=== PATIENT | female | born 1945 | race Caucasian/White ===

== ENCOUNTER 2018-07-15 08:21 | Outpatient (CLI) | payer MEDICARE ==
--- NOTE | 2018-07-15 09:42 | BD ---
DEXA BONE DENSITY: HISTORY: A 73-year-old female. Postmenopausal female. Screening study. COMPARISON: 10/01/2016. FINDINGS: Lumbar Spine: BMD (g/cm2) L1 1.102 T-Score: 1.0, 3.1 L2 1.170 T-Score: 1.3, 3.6 L3 1.225 T-Score: 1.3, 3.7 L4 1.205 T-Score: 1.3, 3.8 L1-L4 1.177 T-Score: 1.2, 3.5 10/01/2016: 1.183, 1.2. BMD CHANGE VERSUS BASELINE: -0.5%. BMD CHANGE VERSUS PREVIOUS: -0.5%. Femoral Neck: 0.635 T-Score: -1.9, 0.1 Total Femur: 0.652 T-Score: -2.4, 0.7 10/01/2016: 0.637, -1.9. BMD CHANGE VERSUS BASELINE: -0.3%. BMD CHANGE VERSUS PREVIOUS: -0.3%. Impression: LUMBAR SPINE: WHO calcification normal. Fracture risk not increased. FEMORAL NECK: Stable WHO classification for osteopenia. Ten-year fracture risk for major osteoporotic fracture 11% . Hip fracture, 2.5%. POS: [facility]
== END 2018-07-15 08:22 | disposition home or self-care (01) ==
LOC: BICMAMMO 08:21
PROVIDERS: ATTEND Internal Medicine Endocrinology, Diabetes & Metabolism
DX: M81.0 Age-related osteoporosis without current pathological fracture (principal)
CPT/HCPCS: 77080

== ENCOUNTER 2020-07-16 10:11 | Outpatient (CLI) | payer MEDICARE ==
--- NOTE | 2020-07-16 10:56 | BD ---
EXAM: DEXA bone density examination HISTORY: 75-year-old postmenopausal female for screening COMPARISON: None FINDINGS: L1--bone mineral density 1.077 g/sq cm; T score 0.8 L2--bone mineral density 1.194 g/sq cm; T score 1.5 L3--bone mineral density 1.270 g/sq cm; T score 1.7 L4--bone mineral density 1.229 g/sq cm; T score 1.5 Total L1-L4--bone mineral density 1.199 g/sq cm; T score 1.4 Left femoral neck--bone mineral density0.651; T score -1.8 Total proximal left femur--bone mineral density 0.839; T score -0.8 IMPRESSION: Osteopenia. This patient has a 10 year WHO fracture risk of a major osteoporotic fracture of 9.9% and of a hip fracture of 2.4%.
== END 2020-07-16 10:12 | disposition home or self-care (01) ==
LOC: BICMAMMO 10:11
PROVIDERS: ATTEND Internal Medicine Endocrinology, Diabetes & Metabolism
DX: M81.0 Age-related osteoporosis without current pathological fracture (principal); M85.852 Other specified disorders of bone density and structure, left thigh
CPT/HCPCS: 77080